=== PATIENT | male | born 1960 | race Asian ===

== ENCOUNTER 2019-02-16 12:21 | Day surgery (SDC) | payer BC ==
[2019-02-16] MEDS ORDERED: MIDAZOLAM 1 MG/ML 2 ML INJ (15:15)
[2019-02-16] MEDS ORDERED: LIDOCAINE 2% (SDV) 5 ML INJ (15:15)
[2019-02-16] MEDS ORDERED: PROPOFOL 20 ML (15:15)
[2019-02-16] MEDS ORDERED: FENTAnyl 50 MCG/ML VIAL (15:16)
[2019-02-16] MEDS ORDERED: ETOMIDATE 20 MG INJ (15:16)
== END 2019-02-16 17:44 | disposition home or self-care (01) ==
LOC: GIL 12:21
DX: Z12.11 Encounter for screening for malignant neoplasm of colon (principal); K64.8 Other hemorrhoids; K29.50 Unspecified chronic gastritis without bleeding; K22.8 Other specified diseases of esophagus; I10 Essential (primary) hypertension; E11.9 Type 2 diabetes mellitus without complications
CPT/HCPCS: 43239; 82962; 88305; 88312; 88313